=== PATIENT | male | born 1955 | race Caucasian/White ===

== ENCOUNTER 2024-10-22 15:08 | Outpatient (CLI) | payer MEDICARE, SELFPAY ==
--- NOTE | ~2024-10-22 | XR_ITS ---
EXAM: XR lumbar spine min 4V, XR sacroiliac joints min 3V DATE: 10/22/2024 16:18 HISTORY: Arthropathic psoriasis . COMPARISON: None available. FINDINGS: 5 nonrib-bearing lumbar-type vertebral bodies. Pedicles intact. 9 mm anterolisthesis at L5 -S1. 2 mm retrolistheses at L1-2 and L2-3. Vertebral body heights preserved. Disc space narrowing and marginal osteophytosis at all lumbar levels. Moderate facet hypertrophy and sclerosis in the lower l umbar spine. Bilateral pars defects at L5. No fracture or dislocation. Degenerative changes in the bi lateral hips. IMPRESSION: Grade 1 anterolisthesis at L5-S1 secondary to bilateral pars defects. Minimal grade 1 retrolistheses at L1-2 and L2-3. Multilevel moderate degenerative disc disease. Multilevel moderate facet arthropath y. Mild bilateral hip osteoarthritis. Radiographically normal bilateral SI joints Reviewed, dictated and finalized at location K. READER IMPRESSION: Grade 1 anterolisthesis at L5-S1 secondary to bilateral pars defects. Minimal g rade 1 retrolistheses at L1-2 and L2-3. Multilevel moderate degenerative disc d isease. Multilevel moderate facet arthropathy. Mild bilateral hip osteoarthritis. Radiographically normal bilateral SI joints
--- NOTE | ~2024-10-22 | XR_ITS ---
EXAM: XR foot LT 2V, XR foot RT 2V DATE: 10/22/2024 16:18 HISTORY: Arthropathic psoriasis . COMPARISON: None available. FINDINGS: Normal mineralization. No fracture or dislocation. No lytic or blastic lesion. Severe left and mild right first MTP joint and sesamoid arthritic changes. Moderate left hallux valgus. Mild sca ttered degenerative changes in the midfoot joints bilaterally. Mild bilateral Achilles and moderate p lantar enthesopathy. No erosion or periosteal change. Soft tissues within normal limits. 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 Reviewed, dictated and finalized at location K. DEVULCANIZER HELPER IMPRESSION: Bilateral first MTP joint and sesamoid osteoarthritis, severe on th e left.
--- NOTE | ~2024-10-22 | XR_ITS ---
EXAM: XR hand LT 2V, XR hand RT 2V DATE: 10/22/2024 16:18 HISTORY: Arthropathic psoriasis . COMPARISON: None available. FINDINGS: Normal mineralization. No fracture or dislocation. No lytic or blastic lesion. Scattered a rthritic changes, typical of osteoarthritis, severe at the bilateral first CMC joints and right first MCP joint, moderate at the left first MCP joint and bilateral second and third MCP joints. No erosio n or periosteal change. Soft tissues within normal limits. IMPRESSION: Moderate-severe polyarticular osteoarthritis of the hands. Reviewed, dictated and finalized at location K. ENWARE ASSEMBLER IMPRESSION: Moderate-severe polyarticular osteoarthritis of the hands.
--- OUTSIDE RECORDS SUMMARY | 2024-10-22 16:01 | XMS_ITS | Data Portability ---
Author Organization [facility], Main Office Address [address] [place] [address] Assessment Encounter Date Assessment Date Assessment LastModified by Organization Details LastModified Time 01/23/2023 01/23/2023 Osteoarthritis stable Low back pain seems to be doing fine Dyslipidemia atorvastatin Blood work ordered Colonoscopy High-fiber low-fat diet Follow-up 4-6 Not available 03/04/2023 10:14:04 07/09/2023 07/09/2023 High-fiber diet blood work reviewed continue current therapy follow-up 6 months [email or web address] Not available 07/09/2023 17:54:58 Plan of Treatment Reminders Order Date Submit Date Provider Last Modified By Organization Details Last Modified Time Details Appointments None recorded. Lab PSA, serum or plasma 2022 023 [facility] (Lab), [address] [place], [address], 3 11:40:18 CMP, serum or plasma 2022 023 [facility] (Lab), [address] [place], [address], 3 17:34:58 lipid panel, serum 2022 023 [facility] (Lab), [address] [place], [address], 3 17:35:03 Referral None recorded. Procedures colonoscopy screening (PROC) 2022 023 TY Sutton MD, [address] [facility], [facility] [address], [address], 3 15:22:50 Surgeries None recorded. Imaging None recorded. Medication Orders None recorded. Patient TargetsNo targets recorded. Patient InstructionsNo instructions recorded. Reason for Referral None Reported. Results Created Date Observation Date Name Description Value Unit Range Abnormal Flag Note LastModifiedBy Organization Detail LastModifiedTime 06/20/20 22 06/28/2022 HLA B 27 DISEA SE ASSOC IATIO N hla-B27 negati ve HLA-B *27 Negat jean pierre B27 allel e inter preta tion for all loci based on IMGT/ HLA datab ase versi on This test was devel oped and its perfo rmanc e isabel cteri stics deter mined by [facility]. It has not been clear ed or appro aly by the Food and Drug Admin istra tion. [facility] Lab CLIA ID Renetta kahn [id number] . This test was perfo rmed using PCR (Poly meras e Chain React ion)/ SSOP (Sequ ence Speci fic Oligo nucle otide Probe s) techn ique. SBT (Sequ ence Based Typin g) and/o r SSP (Sequ ence Speci fic Prime rs) may be used as suppl ement al aleshiao ds when neces siva. Pleas e conta ct HLA [facility] ce at [phone] if you have any quest ions. . Direc tor of HLA Labor atory Dr Shaheed Allison, PhD Perfo rmed at: 2Q - [facility] [address] [facility] [place] [address] Lab Direc tor: Shaheed Allison PhD, Phone : [phone] [facility] (Lab) [address] [place], [address], 06/28/2022 18:09:02 06/20/20 22 06/20/2022 SEDIM ENTAT ION RATE erythrocyte sedimentatio n rate 10 mm/HR 0-20 Not Available [facility] (Lab) [address] [place], [address], 06/20/2022 18:43:27 06/20/20 22 06/20/2022 C REACT JEAN PIERRE PROTE IN,UL TRA SENS C-reactive protein 0.24 mg/dL 0.0-0. [address] [facility] (Lab) [address] [place], [address], 06/20/2022 17:52:05 06/20/20 22 06/20/2022 COMPR EHENS JEAN PIERRE METAB OLIC PANEL sodium 140 mmol/ L 137-[address] [facility] (Lab) [address] [place], [address], 06/20/2022 17:51:56 06/20/20 22 06/20/2022 COMPR EHENS JEAN PIERRE METAB OLIC PANEL potassium 4.6 mmol/ L 3.5-5. [address] [facility] (Lab) [address] [place], [address], 06/20/2022 17:51:56 06/20/20 22 06/20/2022 COMPR EHENS JEAN PIERRE METAB OLIC PANEL chloride 106 mmol/ L 98-[address] [facility] (Lab) [address] [place], [address], 06/20/2022 17:51:56 06/20/20 22 06/20/2022 COMPR EHENS JEAN PIERRE METAB OLIC PANEL carbon dioxide 26 mmol/ L 22-[address] [facility] (Lab) [address] [place], [address], 06/20/2022 17:51:56 06/20/20 22 06/20/2022 COMPR EHENS JEAN PIERRE METAB OLIC PANEL anion gap 12.6 mmol/ L 14-[address] [facility] (Lab) [address] [place], [address], 06/20/2022 17:51:56 06/20/20 22 06/20/2022 COMPR EHENS JEAN PIERRE METAB OLIC PANEL glucose 88 mg/dL 70-[address] [facility] (Lab) [address] [place], [address], 06/20/2022 17:51:56 06/20/20 22 06/20/2022 COMPR EHENS JEAN PIERRE METAB OLIC PANEL BUN 21 mg/dL 8-[address] [facility] (Lab) [address] [place], [address], 06/20/2022 17:51:56 06/20/20 22 06/20/2022 COMPR EHENS JEAN PIERRE METAB OLIC PANEL creatinine 0.84 mg/dL 0.66-[address] [facility] (Lab) [address] [place], [address], 06/20/2022 17:51:56 06/20/20 22 06/20/2022 COMPR EHENS JEAN PIERRE METAB OLIC PANEL bilirubin, total 0.70 mg/dL 0.20-[address] [facility] (Lab) [address] [place], [address], 06/20/2022 17:51:56 06/20/20 22 06/20/2022 COMPR EHENS JEAN PIERRE METAB OLIC PANEL GFR >60 Refer ence Range : [facility] GFR Healt hy Adult : >60 mL/mi n/1.7 3 m2 Chron ic Kidne y Disea se: 15-60 mL/mi n/1.7 3 m2 Kidne y Failu re: <15/m L/min /1.73 m2 www.n iddk. nih.g ov The MDRD study equat ion has not been valid ated in child curtis <18 years of age; pregn ant women ; the elder ly >85 years of age; or in some racia l or ethni c subgr oups, such as Hispa nics. Outsi de the valid ated sarah eters , estim ated GFR is less accur ate, requi ring clini ysabel judgm ent on a case- by-ca se basis . Clini ysabel inter preta tion for other races and ages must be made by the clini jerry. The MDRD study equat ion has not been valid ated for the evalu ation of serum creat inine relat ed to nutri lucinda l statu s or medic ation usage . For perso ns <18 years of age, a pedia tric GFR calcu lator is avail able on the [facility] websi te: https ://ww w.kid taylor.o rg/pr ofess ional s/kdo qi/gf r_cal culat or Not Available [facility] (Lab) [address] [place], [address], 06/20/2022 17:51:56 06/20/20 22 06/20/2022 COMPR EHENS JEAN PIERRE METAB OLIC PANEL alkaline phosphatase 64 U/L 38-126 Not Available [facility] (Lab) [address] [place], [address], 06/20/2022 17:51:56 06/20/20 22 06/20/2022 COMPR EHENS JEAN PIERRE METAB OLIC PANEL alanine aminotransfe rase 28 U/L 0-50 Not Available [facility] (Lab) [address] [place], [address], 06/20/2022 17:51:56 06/20/20 22 06/20/2022 COMPR EHENS JEAN PIERRE METAB OLIC PANEL aspartate aminotransfe rase 28 U/L 15-46 Not Available [facility] (Lab) [address] [place], [address], 06/20/2022 17:51:56 06/20/20 22 06/20/2022 COMPR EHENS JEAN PIERRE METAB OLIC PANEL calcium 10.0 mg/dL 8.4-[address] [facility] (Lab) [address] [place], [address], 06/20/2022 17:51:56 06/20/20 22 06/20/2022 COMPR EHENS JEAN PIERRE METAB OLIC PANEL total protein 7.3 g/dL 6.3-8. [address] [facility] (Lab) [address] [place], [address], 06/20/2022 17:51:56 06/20/20 22 06/20/2022 COMPR EHENS JEAN PIERRE METAB OLIC PANEL albumin 4.6 g/dL 3.0-4. [address] [facility] (Lab) [address] [place], [address], 06/20/2022 17:51:56 06/20/20 22 06/20/2022 COMPR EHENS JEAN PIERRE METAB OLIC PANEL globulin 2.7 g/dL 2.6-4. [address] [facility] (Lab) [address] [place], [address], 06/20/2022 17:51:56 06/20/20 22 06/20/2022 COMPR EHENS JEAN PIERRE METAB OLIC PANEL A/G ratio 1.7 ratio 1.0-2. [address] [facility] (Lab) [address] [place], [address], 06/20/2022 17:51:56 06/20/20 22 06/20/2022 URINE MICRO SCOPI C EXAM/ IRIS white blood cells 0-8 /i??h pfi?? 0-[address] [facility] (Lab) [address] [place], [address], 06/20/2022 17:43:09 06/20/20 22 06/20/2022 URINE MICRO SCOPI C EXAM/ IRIS red blood cells 0-4 /i??h pfi?? 0-[address] [facility] (Lab) [address] [place], [address], 06/20/2022 17:43:09 06/20/20 22 06/20/2022 URINE MICRO SCOPI C EXAM/ IRIS bacteria none Not Available [facility] (Lab) [address] [place], [address], 06/20/2022 17:43:09 06/20/20 22 06/20/2022 URINE MICRO SCOPI C EXAM/ IRIS mucous occasi onal /i??l pfi?? abnormal Not Available [facility] (Lab) [address] [place], [address], 06/20/2022 17:43:09 06/20/20 22 06/20/2022 URINE MICRO SCOPI C EXAM/ IRIS squamous epithelial occasi onal /i??l pfi?? abnormal Not Available [facility] (Lab) [address] [place], [address], 06/20/2022 17:43:09 06/20/20 22 06/20/2022 CBC/C OMPLE TE BLD COUNT W/DIF F white blood cells 6.9 x10'3 /uL 4.2-[address] [facility] (Lab) [address] [place], [address], 06/20/2022 17:41:40 06/20/20 22 06/20/2022 CBC/C OMPLE TE BLD COUNT W/DIF F red blood cells 4.22 x10'6 /uL 4.10-[address] [facility] (Lab) [address] [place], [address], 06/20/2022 17:41:40 06/20/20 22 06/20/2022 CBC/C OMPLE TE BLD COUNT W/DIF F hemoglobin 13.1 g/dL 13.2-1 7[address] [facility] (Lab) [address] [place], [address], 06/20/2022 17:41:40 06/20/20 22 06/20/2022 CBC/C OMPLE TE BLD COUNT W/DIF F hematocrit 40.0 % 39.3-[address] [facility] (Lab) [address] [place], [address], 06/20/2022 17:41:40 06/20/20 22 06/20/2022 CBC/C OMPLE TE BLD COUNT W/DIF F mean red cell volume 94.8 fL 80.0-[address] [facility] (Lab) [address] [place], [address], 06/20/2022 17:41:40 06/20/20 22 06/20/2022 CBC/C OMPLE TE BLD COUNT W/DIF F mean red cell hemoglobin 31.0 pg 27.0-[address] [facility] (Lab) [address] [place], [address], 06/20/2022 17:41:40 06/20/20 22 06/20/2022 CBC/C OMPLE TE BLD COUNT W/DIF F mean RBC HGB concentratio n 32.8 g/dL 31.0-[address] [facility] (Lab) [address] [place], [address], 06/20/2022 17:41:40 06/20/20 22 06/20/2022 CBC/C OMPLE TE BLD COUNT W/DIF F red cell distribution width 13.5 % 11.8-[address] [facility] (Lab) [address] [place], [address], 06/20/2022 17:41:40 06/20/20 22 06/20/2022 CBC/C OMPLE TE BLD COUNT W/DIF F platelets 237 x10'3 /uL 150-[address] [facility] (Lab) [address] [place], [address], 06/20/2022 17:41:40 06/20/20 22 06/20/2022 CBC/C OMPLE TE BLD COUNT W/DIF F mean platelet volume 9.1 fL 9.0-[address] [facility] (Lab) [address] [place], [address], 06/20/2022 17:41:40 06/20/20 22 06/20/2022 CBC/C OMPLE TE BLD COUNT W/DIF F neutrophils 62.8 % 39.0-[address] [facility] (Lab) [address] [place], [address], 06/20/2022 17:41:40 06/20/20 22 06/20/2022 CBC/C OMPLE TE BLD COUNT W/DIF F lymphocytes 23.0 % 16.0-[address] [facility] (Lab) [address] [place], [address], 06/20/2022 17:41:40 06/20/20 22 06/20/2022 CBC/C OMPLE TE BLD COUNT W/DIF F monocytes 9.2 % 5.0-[address] [facility] (Lab) [address] [place], [address], 06/20/2022 17:41:40 06/20/20 22 06/20/2022 CBC/C OMPLE TE BLD COUNT W/DIF F eosinophils 3.5 % 1.0-7. [address] [facility] (Lab) [address] [place], [address], 06/20/2022 17:41:40 06/20/20 22 06/20/2022 CBC/C OMPLE TE BLD COUNT W/DIF F basophils 1.2 % 0.0-2. [address] [facility] (Lab) [address] [place], [address], 06/20/2022 17:41:40 06/20/20 22 06/20/2022 CBC/C OMPLE TE BLD COUNT W/DIF F immature granulocytes 0.3 % 0.00-[address] [facility] (Lab) [address] [place], [address], 06/20/2022 17:41:40 06/20/20 22 06/20/2022 CBC/C OMPLE TE BLD COUNT W/DIF F neutrophils, absolute count 4.33 x10'3 /uL 1.5-8. [address] [facility] (Lab) [address] [place], [address], 06/20/2022 17:41:40 06/20/20 22 06/20/2022 CBC/C OMPLE TE BLD COUNT W/DIF F lymphocytes, absolute count 1.58 x10'3 /uL 1.07-[address] [facility] (Lab) [address] [place], [address], 06/20/2022 17:41:40 06/20/20 22 06/20/2022 CBC/C OMPLE TE BLD COUNT W/DIF F monocytes, absolute count 0.63 x10'3 /uL 0.29-0 .99 Not Available [facility] (Lab) [address] [place], [address], 06/20/2022 17:41:40 06/20/20 22 06/20/2022 CBC/C OMPLE TE BLD COUNT W/DIF F eosinophils, absolute count 0.24 x10'3 /uL 0.02-[address] [facility] (Lab) [address] [place], [address], 06/20/2022 17:41:40 06/20/20 22 06/20/2022 CBC/C OMPLE TE BLD COUNT W/DIF F basophils, absolute count 0.08 x10'3 /uL 0.01-[address] [facility] (Lab) [address] [place], [address], 06/20/2022 17:41:40 06/20/20 22 06/20/2022 CBC/C OMPLE TE BLD COUNT W/DIF F immature granulocytes ,absolute 0.02 x10'3 /uL 0.00-[address] [facility] (Lab) [address] [place], [address], 06/20/2022 17:41:40 06/20/20 22 06/20/2022 CBC/C OMPLE TE BLD COUNT W/DIF F nucleated red blood cells 0.0 % -0 Not Available [facility] (Lab) [address] [place], [address], 06/20/2022 17:41:40 06/20/20 22 06/20/2022 CBC/C OMPLE TE BLD COUNT W/DIF F NRBC# 0.00 x10'3 /uL Not Available [facility] (Lab) [address] [place], [address], 06/20/2022 17:41:40 07/04/20 23 07/04/2023 COMPR EHENS JEAN PIERRE METAB OLIC PANEL sodium 141 mmol/ L 137-[address] [facility] (Lab) [address] [place], [address], 07/04/2023 17:34:58 07/04/20 23 07/04/2023 COMPR EHENS JEAN PIERRE METAB OLIC PANEL potassium 4.7 mmol/ L 3.5-5. [address] [facility] (Lab) [address] [place], [address], 07/04/2023 17:34:58 07/04/2007/04/2023 COMPR EHENS JEAN PIERRE METAB OLIC PANEL chloride 104 mmol/ L 98-[address] [facility] (Lab) [address] [place], [address], 07/04/2023 17:34:58 07/04/20 23 07/04/2023 COMPR EHENS JEAN PIERRE METAB OLIC PANEL carbon dioxide 28 mmol/ L 22-[address] [facility] (Lab) [address] [place], [address], 07/04/2023 17:34:58 07/04/2007/04/2023 COMPR EHENS JEAN PIERRE METAB OLIC PANEL anion gap 13.7 mmol/ L 14-[address] [facility] (Lab) [address] [place], [address], 07/04/2023 17:34:58 07/04/2007/04/2023 COMPR EHENS JEAN PIERRE METAB OLIC PANEL glucose 86 mg/dL 70-[address] [facility] (Lab) [address] [place], [address], 07/04/2023 17:34:58 07/04/2007/04/2023 COMPR EHENS JEAN PIERRE METAB OLIC PANEL BUN 19 mg/dL 8-[address] [facility] (Lab) [address] [place], [address], 07/04/2023 17:34:58 07/04/2007/04/2023 COMPR EHENS JEAN PIERRE METAB OLIC PANEL creatinine 0.72 mg/dL 0.66-[address] [facility] (Lab) [address] [place], [address], 07/04/2023 17:34:58 07/04/2007/04/2023 COMPR EHENS JEAN PIERRE METAB OLIC PANEL GFR >60 Refer ence Range : [facility] GFR Healt hy Adult : >60 mL/mi n/1.7 3 m2 Chron ic Kidne y Disea se: 15-60 mL/mi n/1.7 3 m2 Kidne y Failu re: <15/m L/min /1.73 m2 www.n iddk. nih.g ov The MDRD study equat ion has not been valid ated in child curtis <18 years of age; pregn ant women ; the elder ly >85 years of age; or in some racia l or ethni c subgr oups, such as Hispa nics. Outsi de the valid ated sarah eters , estim ated GFR is less accur ate, requi ring clini ysabel judgm ent on a case- by-ca se basis . Clini ysabel inter preta tion for other races and ages must be made by the clini jerry. The MDRD study equat ion has not been valid ated for the evalu ation of serum creat inine relat ed to nutri lucinda l statu s or medic ation usage . For perso ns <18 years of age, a pedia tric GFR calcu lator is avail able on the [facility] websi te: https ://franny yeung.ke vazquez.o artem/pr ofess ional s/kdo qi/gf r_cal culat or Not Available [facility] (Lab) [address] [place], [address], 07/04/2023 17:34:58 07/04/2007/04/2023 COMPR EHENS JEAN PIERRE METAB OLIC PANEL alkaline phosphatase 73 U/L 38-126 Not Available [facility] (Lab) [address] [place], [address], 07/04/2023 17:34:58 07/04/2007/04/2023 COMPR EHENS JEAN PIERRE METAB OLIC PANEL alanine aminotransfe rase 30 U/L 0-50 Not Available [facility] (Lab) [address] [place], [address], 07/04/2023 17:34:58 07/04/20 23 07/04/2023 COMPR EHENS JEAN PIERRE METAB OLIC PANEL aspartate aminotransfe rase 30 U/L 15-46 Not Available [facility] (Lab) [address] [place], [address], 07/04/2023 17:34:58 07/04/20 23 07/04/2023 COMPR EHENS JEAN PIERRE METAB OLIC PANEL bilirubin, total 0.60 mg/dL 0.20-[address] [facility] (Lab) [address] [place], [address], 07/04/2023 17:34:58 07/04/2007/04/2023 COMPR EHENS JEAN PIERRE METAB OLIC PANEL calcium 10.1 mg/dL 8.4-[address] [facility] (Lab) [address] [place], [address], 07/04/2023 17:34:58 07/04/2007/04/2023 COMPR EHENS JEAN PIERRE METAB OLIC PANEL total protein 7.6 g/dL 6.3-8. [address] [facility] (Lab) [address] [place], [address], 07/04/2023 17:34:58 07/04/2007/04/2023 COMPR EHENS JEAN PIERRE METAB OLIC PANEL albumin 4.7 g/dL 3.0-4. [address] [facility] (Lab) [address] [place], [address], 07/04/2023 17:34:58 07/04/2007/04/2023 COMPR EHENS JEAN PIERRE METAB OLIC PANEL globulin 2.9 g/dL 2.6-4. [address] [facility] (Lab) [address] [place], [address], 07/04/2023 17:34:58 07/04/2007/04/2023 COMPR EHENS JEAN PIERRE METAB OLIC PANEL A/G ratio 1.6 ratio 1.0-2. [address] [facility] (Lab) [address] [place], [address], 07/04/2023 17:34:58 07/04/20 23 07/04/2023 LIPID PANEL cholesterol 203 mg/dL 140-19 9 high NIH PRASHANTH NSUS RECOM MENDA TION FOR RE STERO L: ADULT CHILD LOW RISK: <200 <170 BORDE RLINE : <200- 239 ----- HIGH RISK: >240 >200 Not Available [facility] (Lab) [address] [place], [address], 07/04/2023 17:35:03 07/04/2007/04/2023 LIPID PANEL triglyceride s 112 mg/dL 0-150 NIH PRASHANTH NSUS REPOR T RECOM MENDA TION FOR TRIGL YCERI RANDY: ADULT CHILD LOW RISK: <150 ----- BODER LINE: 150-1 99 ----- HIGH RISK: >200 ----- Not [address] [facility] (Lab) [address] [place], [address], 07/04/2023 17:35:03 07/04/2007/04/2023 LIPID PANEL HDL cholesterol 86 mg/dL 40- Not Available [facility] (Lab) [address] [place], [address], 07/04/2023 17:35:03 07/04/2007/04/2023 LIPID PANEL LDL cholesterol, calculated 95 mg/dL 0-130 [facility] PRASHANTH NSUS REPOR T RECOM MENDA TIONS FOR LDL: ADULT CHILD LOW RISK <130 <110 (OPTI MAL LDL) <100 ----- BORDE RLINE : 130-1 59 ----- HIGH RISK: >160 >130 A TRIGL YCERI DE RESUL T >400 INVAL IDATE S THE CALCU LATIO N FOR LDL FRACT IONAT ION - THE LDL RESUL T WILL NOT BE REPOR JOHN. Not Available [facility] (Lab) [address] [place], [address], 07/04/2023 17:35:03 07/04/2007/04/2023 PSA SCREE N PSA medicare screen 0.76 NG/mL 0.00-[address] [facility] (Lab) [address] [place], [address], 07/04/2023 18:14:08 06/30/20 22 06/30/2022 XR, hip, unila teral [facility] [address] [facility] [place] [address] Anil odonnell Name: RAJ PICHARDO Access ion #: [id number] Sex: M : 1955 7 Locati on: RAD Attend ing Physic gilbert: SANGITA STOCK Orderi ng Physic gilbert: SANGITA STOCK Exam Date: 2:45 PM Exam Name: XR HIP/PE LVIS LT 2-3V Admitt ing Diagno sis(es ): RADIOL OGY REPORT - FINAL EXAM: XR HIP/PE LVIS LT 2-3V HISTOR Y: LOW BACK PAIN COMPAR GIDEON: None. TECHNI QUE: AP and frog-l eg latera l views of the left hip were perfor med. FINDIN GS: No acute fractu re is identi fied about the left hip. Mild femoro acetab ular joint osteoa rthrit ic residu als noted. IMPRES RICHARD: No acute proces s. Page 1 of 2 [facility] Anil odonnell Name: RAJ PICHARDO Access ion #: [id number] Sex: M : 1955 7 Exam Date: 2:45 PM Exam Name: XR HIP/PE LVIS LT 2-3V Admitt ing Diagno sis(es ): Create d and electr onical ly signed by: Raj dale MD Signed Date: 4:48 PM (CT) Dictat ed by: Raj dale MD DD: 4:48 PM (CT) DT: 4:48 PM (CT) Page 2 of [id number] [facility] (Imaging) [address] [facility] [place], [address], 11/22/2022 06:19:49 06/30/2006/30/2022 MRI, lumba r spine , w/o contr ast [facility] [address] [facility] [place] [address] Anil odonnell Name: RAJ PICHARDO Access ion #: [id number] Sex: M : 1955 7 Locati on: RAD Attend ing Physic gilbert: SANGITA STOCK Orderi ng Physic gilbert: SANGITA STOCK Exam Date: 2:54 PM Exam Name: MRI L SPINE WO Admitt ing Diagno sis(es ): RADIOL OGY REPORT - FINAL EXAM: MRI L SPINE WO HISTOR Y: low back pain left leg-le ft knee pain COMPAR GIDEON: None. TECHNI QUE: Multip lanar multis equenc e noncon trast MR images of the lumbar spine were perfor med. Sagita l: T1, T2, Axial: T1, T2, T2 multia ngle. FINDIN GS: Verteb ral bodies : No acute proces s. Conus medull sherine: T12 Disc spaces : All levels demons trate degene rative desicc ation signal intens ity Page 1 of 3 [facility] Anil odonnell Name: RAJ PICHARDO Access ion #: [id number] Sex: M : 1955 7 Exam Date: 2:54 PM Exam Name: MRI L SPINE WO Admitt ing Diagno sis(es ): Parave rtebra l soft tissue s: Unrema rkable Vascul ature: No aneury sm T12-L1 : Unrema rkable L1-2: Mild bulgin g of the degene rate annulu s which result s in mild centra l spinal stenos is. L2-3: Mild bulgin g of a degene rate annulu s result s in modera te centra l spinal stenos is, severe right and modera te left prefor aminal stenos is and with facet hypert rophy, mild bilate ral neural forami nal stenos is. L3-4: A diffus patricia bulgin g degene rate annulu s is presen t result ing in modera te centra l spinal stenos is, severe right and modera te left prefor aminal stenos is and with facet hypert rophic change s, modera te right neural forami nal stenos is, a tiny right forami nal disc protru richard cannot be exclud ed. L4-5: Unrema rkable L5-S1: Grade 1 spondy lolist hesis noted at L5-S1. A bulgin g degene rate annulu s presen t, the net result is border line centra l spinal stenos is and mild left neural forami nal stenos is. IMPRES RICHARD: See above. Create d and electr onical ly signed by: Page 2 of 3 [facility] Patireza t Name: RAJ PICHARDO Access ion #: [id number] Sex: M : 1955 7 Exam Date: 2:54 PM Exam Name: MRI L SPINE WO Admitt ing Diagno sis(es ): Raj dale MD Signed Date: 3:53 PM (CT) Dictat ed by: Raj dale MD DD: 3:53 PM (CT) DT: 3:53 PM (CT) Page 3 of [id number] [facility] (Imaging) [address] [place], [address], 11/22/2022 06:19:49 08/08/20 24 08/08/2024 LDCT, chest , for lung cance r cali [facility] [address] [place] [address] Patireza t Name: RAJ PICHARDO Access ion #: [id number] Sex: M : 1955 10 Dictat ed By: Michelle Arroyo ing Physic gilbert: SANGITA STOCKi ng Physic gilbert: SANGITA STOCK Exam Date: 2023 09:58 AM Exam Name: CT LOW DOSE CNCR SCREEN ING Admitt ing Diagno sis(es ): CT Chest withou t intrav enous contra st INDICA TION: nicoti ne depend ence TECHNI QUE: Multid etecto r spiral CT of the chest was perfor med from the lung apices to the upper abdome n. Axial, luo l and sagitt al multip lanar reform ats were perfor med. Radiat ion Dose : 1. Chest: CTDI volume is 1.5 mGy. Dose-l ength produc t is T6 0.3 mGy*cm The dose indica tors for CT are the volume Comput ed Tomogr aphy (CT) Dose Index (CTDIv ol) and the Dose Length Produc t (DLP), and are measur ed in units of mGy and mGy-cm , respec tively . These indica tors are not patien t dose, but values genera john from the CT scanne r acquis ition factor s. The report includ es radiat ion exposu re data for exposu res receiv ed during this examin ation. Compar gideon: None Findin gs: Lower neck: Normal thyroi d. Lungs: No focal consol idatio n. Mild diffus e periph eral increa sed attenu ation in the periph denver of the right lung may repres ent mild fibrot ic change s. Heart/ Vascul ar Struct ures: Normal heart size. No perica rdial effusi on. Lymph Nodes: No adenop athy. Calcif ied medias tinal lymph nodes likely relate d to prior granul omatou s infect ion. Page 1 [facility] [address] [place], [place] [id number] Patien t Name: FRANCIS GUZMÁNTONYRAJ Mccoy Access ion #: [id number] Sex: M : 1955 9 Dictat ed By: Michelle Simpson Attend ing Physic gilbert: HOLLAND MAYNARD ng Physic gilbert: SANGITA STOCK Exam Date: 2023 09:58 AM Exam Name: CT LOW DOSE CNCR SCREEN ING Admitt ing Diagno sis(es ): Pleura : No pleura l effusi on or signif icant pneumo thorax . Muscul oskele ena: No acute osseou s abnorm ality. Soft tissue s: Normal . Upper abdome n: Limite d portio ns of the upper abdome n are unrema rkable . IMPRES RICHARD: Indete rminat e 0.3 cm nodule in the periph den[place] of the right upper lobe. Possib le mild / early fibrot ic change s in the right lung. LUNG RADS Catego ry 2: Contin ue annual screen ing with LDCT Radiat ion optimi zation : All CT scans at this facili ty use at least one of these dose optimi zation techni ques: automa john exposu re contro l mA and/or kV adjust ment per patien t size (inclu randy target ed exams where dose is matche d to clinic al indica tion) or iterat jean pierre recons tructi on. Electr onical ly Signed by: Michelle Simpson at 2023 10:35: 37 AM Page [email or web address] [facility] ([facility]) [address] [place], [address], 08/09/2024 13:59:20 Result Notes None recorded. Problems Name Problem SNOMED Code Status Onset Date Resolution Date Notes Provider Name and Address Organization Details Recorded Time Chronic low back pain 052540404 Active 2021 Not Available [facility] 3 07:02:20 Low back pain 373275483 Active 2021 Not Available [facility] 3 07:02:20 Cyst of tonsil 627248189 Active 2016 Not Available [facility] 3 07:02:21 Osteoarthr itis 394923900 Active 2020 Not Available [facility] 3 07:02:21 Pain of left knee joint 7651724435781 07 Active 2022 Not Available [facility] 3 07:02:21 Pain of bilateral knee joints 0456108883023 04 Active 2022 Not Available [facility] 3 07:02:21 Hyperlipid emia 86380957 Active 2018 Not Available Count includes the [facility] 3 07:02:21 Diverticul ar disease 280704425 Active 2022 Alejandro Stock MD [address] [facility], [facility] [address], [place], [address] , [place] [facility] [employer] 3 17:54:43 Problem Notes None recorded. Procedures Surgical History Date Name Laterality Status Provider Name and Address Organization Details Recorded Time Hand completed Not Available [facility] 09/2022 05:58:49 Imaging Results Imaging Date Name Status LastModified by Organiz ation Details LastModified Time 06/30/2022 XR, hip, unilateral completed [id number] [facility] [address] [place], [address], 11/22/2022 06:19:49 06/30/2022 MRI, lumbar spine, w/o contrast completed [id number] [facility] ([facility]) [address] [place], [address], 11/22/2022 06:19:49 08/08/2024 LDCT, chest, for lung cancer screening completed [email or web address] [facility] [address] [place], [address], 08/09/2024 13:59:20 Procedure Notes None recorded. Medical Equipment None Reported. Allergies Allergen ID Allergen Name Allergen Category Reaction Reaction Severity Criticality Documentation Date Start Date Code Code System Note Provider Name and Address Organization Details Recorded Time 87268 phenobarb ital medicatio n edema Not available Not available 11/22/2022 8134 RxNorm Not Available Count includes the [facility] 06:19:14 Medications Name Sig Start Date Stop Date Status Note LastModified by Organization Details LastModified Time tizanidine 2 mg tablet TAKE 1 TABLET BY MOUTH THREE TIMES DAILY NEEDED FOR MUSCLE SPASM active Not Available Not Available No t Available atorvastati n 10 mg tablet TAKE 1 TABLET BY MOUTH ONCE DAILY active Not Available Not Available No t Available aspirin 325 mg tablet Take 1 tablet every day by oral route as needed. 2020 active Not Available Not Available Not Avai lable tizanidine 4 mg tablet Take 1 tablet every day by oral route at bedtime. 08/22 completed Not Available Not Available Not Available benzonatate 200 mg capsule Take 1 capsule 3 times a day by oral route. 04/03 completed Not Available Not Available Not Available hydrocodone 5 mg-acetamin ophen 325 mg tablet TAKE 1 TO 2 TABLETS BY MOUTH EVERY 6 HOURS NEEDED FOR PAIN 08/14 completed Not Available Not Available Not Available prednisone 20 mg tablet active Not Available Not Available Not Available Zithromax Z-Jorge 250 mg tablet Take as directed 04/03 completed Not Available Not Available Not Available promethazin e 6.25 mg-codeine 10 mg/5 mL syrup Take 5 mL every day by oral route at bedtime. 04/03 completed Not Available Not Available Not Available peg-electro lyte solution 420 gram oral solution TAKE 1/2 BY MOUTH AT 5 PM ON 03/04/23 THEN TAKE 1/2 AT 5 AM ON 03/05/23. 07/09 completed Not Available Not Available Not Available oseltamivir 75 mg capsule Take 1 capsule twice a day by oral route for 5 days. 04/03 completed Not Available Not Available Not Available duloxetine 30 mg capsule,del ayed release TAKE 1 CAPSULE BY MOUTH TWICE DAILY 07/09 completed Not Available Not Available Not Available duloxetine 60 mg capsule,del ayed release TAKE 1 CAPSULE BY MOUTH TWICE DAILY active Not Available Not Available No t Available Vitals Date Recorded Body mass index (BMI) Body height Heart rate Body temperature Body weight Systolic blood pressure Diastolic blood pressure Provider Name and Address Organization Details Last Updated DateTime 2 27.8 kg/m2 168.91 cm 86 /min 98.3 [degF] 32065.6 6 g 118 mm[Hg] 70 mm[Hg] Not Available [facility] 3 06:02:16 Date Recorded Body mass index (BMI) Body height Heart rate Body temperature Body weight Systolic blood pressure Diastolic blood pressure Provider Name and Address Organization Details Last Updated DateTime 2 28 kg/m2 168.91 cm 79 /min 98.4 [degF] 48245.2 6 g 136 mm[Hg] 80 mm[Hg] Not Available [facility] 3 06:02:16 Date Recorded Body mass index (BMI) Body height Heart rate Body temperature Body weight Systolic blood pressure Diastolic blood pressure Provider Name and Address Organization Details Last Updated DateTime 3 28.1 kg/m2 168.91 cm 76 /min 97.7 [degF] 05235.1 3 g 124 mm[Hg] 72 mm[Hg] Not Available [facility] 3 06:02:16 Date Recorded Body height Body mass index (BMI) Body weight Body temperature Heart rate Systolic blood pressure Diastolic blood pressure Provider Name and Address Organization Details Last Updated DateTime 3 168.91 cm 27.2 kg/m2 18736.3 g 98.2 [degF] 96 /min 142 mm[Hg] 84 mm[Hg] ANDIE Pink PA [employer] 3 16:51:29 Date Recorded Body height Body weight Body temperature Heart rate Oxygen saturation Oxygen saturation in Arterial blood by Pulse oximetry Systolic blood pressure Diastolic blood pressure Provider Name and Address Organization Details Last Updated DateTime 3 168.91 cm 40944.7 g 97.5 [degF] 82 /min 98 % 98 % 126 mm[Hg] 86 mm[Hg] Katia Dwyer RN [employer] 3 16:17:20 Social History Question Answer Notes LastModified by Organization Details LastModified Time Tobacco Smoking Status Former Smoker quit 2016 Not Available Count includes the [facility] 11/22/2022 05:56:24 Do You Have An Advance Directive? No MIGRATION.300026 Information not available 11/22/2022 What Is Your Level Of Alcohol Consumption? Moderate MIGRATION.300026 Information not available 11/22/2022 Are You Blind Or Do You Have Difficulty Seeing? Yes Glasses MIGRATION.300026 Information not available 11/22/2022 What Is Your Level Of Caffeine Consumption? Moderate MIGRATION.[id number] Information not available 11/22/2022 In The 14 Days Before Symptom Onset, Have You Had Close Contact With A Laboratory-confi rmed COVID-19 While That Case Was Ill? No MIGRATION.300026 Information not available 11/22/2022 In The 14 Days Before Symptom Onset, Have You Had Close Contact With A Person Who Is Under Investigation For COVID-19 While That Person Was Ill? No MIGRATION.0301 626408 Information not available 11/22/2022 Are You Deaf Or Do You Have Serious Difficulty Hearing? No MIGRATION.0301 531324 Information not available 11/22/2022 What Type Of Diet Are You Following? REGULAR MIGRATION.0301 139797 Information not available 11/22/2022 What Is The Highest Grade Or Level Of School You Have Completed Or The Highest Degree You Have Received? 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 No MIGRATION.0301 883287 Information not available 11/22/2022 What Is The Fluoride Status Of Your Home? Unknown MIGRATION.0301 237497 Information not available 11/22/2022 When Did You Quit Smoking? 1-5yearssincelastc igarette MIGRATION.0301 275012 Information not available 11/22/2022 Are There Any Guns Present In Your Home? No MIGRATION.0301 614136 Information not available 11/22/2022 Do You Use Insect Repellent Routinely? No MIGRATION.0301 781462 Information not available 11/22/2022 Where Do You Live? SingleLevelHouse MIGRATION.0301 561723 Information not available 11/22/2022 Do You Have A Medical Power Of University Librarian? No MIGRATION.0301 246229 Information not available 11/22/2022 What Was The Date Of Your Most Recent Tobacco Screening? 07/09/2023 [email or web address] Information not available 07/09/2023 Have You Ever Been Counseled For Unhealthy Alcohol Use? No MIGRATION.0301 388608 Information not available 11/22/2022 Do You Have Any Pets? No MIGRATION.0301 552482 Information not available 11/22/2022 What Is Your Relationship Status? MIGRATION.0301 920805 Information not available 11/22/2022 Do You Use Your Seat Belt Or Car Seat Routinely? Yes MIGRATION.0301 602527 Information not available 11/22/2022 Do You Have Smoke And Carbon Monoxide Detectors In Your Home? Yes MIGRATION.0301 018928 Information not available 11/22/2022 Are You Passively Exposed To Smoke? No MIGRATION.0301 846543 Information not available 11/22/2022 Are There Any Smokers In Your House? No MIGRATION.0301 390713 Information not available 11/22/2022 What Types Of Sporting Activities Do You Participate In? None MIGRATION.0301 779999 Information not available 11/22/2022 Do You Feel Stressed (tense, Restless, Nervous, Or Anxious, Or Unable To Sleep At Night)? [id number] MIGRATION.0301 608340 Information not available 11/22/2022 Do You Use Any Illicit Or Recreational Drugs? No MIGRATION.0301 777988 Information not available 11/22/2022 Do You Use Sunscreen Routinely? No MIGRATION.0301 306959 Information not available 11/22/2022 Have You Recently Traveled Abroad? No MIGRATION.0301 924287 Information not available 11/22/2022 Do You Have Any Dietary Restrictions? No MIGRATION.0301 408187 Information not available 11/22/2022 Do You Or Have You Ever Used Any Other Forms Of Tobacco Or Nicotine? No MIGRATION.0301 453819 Information not available 11/22/2022 Sex: Male Functional Status Question Answer Note LastModified by Organizat ion Details LastModified Time Do you have difficulty walking or climbing stairs? No MIGRATION.3032891 026 Information not available 11/22/2022 Do you have transportation difficulties? No MIGRATION.6244246 026 Information not available 11/22/2022 Are you able to walk? YESWOREST MIGRATION.0001422 026 Information not available 11/22/2022 Do you have difficulty doing errands alone? No MIGRATION.5835159 026 Information not available 11/22/2022 Are you able to care for yourself? No MIGRATION.8381856 026 Information not available 11/22/2022 What is your exercise level? Occasional MIGRATION.3328898 026 Information not available 11/22/2022 Mental Status Question Answer Note LastModified by Organizat ion Details LastModified Time Do you have difficulty concentrating, remembering or making decisions? No MIGRATION.[id number] 6 Information not available 11/22/2022 Family History Relationship Description Onset Age of this Age Resolved Age Notes LastModified by Organization Details LastModified Time Mother Arthritis MIGRATION.662 [id number] Not available 11/22/2022 05:58:53 Mother Asthma MIGRATION.804 [id number] Not available 11/22/2022 05:58:54 Father Arthritis MIGRATION.946 [id number] Not available 11/22/2022 05:58:54 Paternal Grandmother Arthritis MIGRATION.342 [id number] Not available 11/22/2022 05:58:54 Paternal Grandmother Gout MIGRATION.425 [id number] Not available 11/22/2022 05:58:54 Sister Asthma MIGRATION.122 [id number] Not available 11/22/2022 05:58:54 Sister Asthma MIGRATION.647 5716125 Not available 11/22/2022 05:58:54 Medical History Condition Response BLINDNESS N NERVE DISEASE N RHEUMATIC FEVER N BLADDER PROBLEMS N KIDNEY STONES N MRSA N OTHER # 1 N POLIO N LUNG DISEASE/DISORDER N HISTORY OF DRUG ABUSE N RADIATION / CHEMOTHERAPY N COPD N Other # 2 N BLOOD DISEASES N EAR OR HEARING PROBLEMS N MUMPS N SHINGLES N DEPRESSION (INCLUDING POST ) N BOWEL PROBLEMS N STROKE/TIA N ULCERS N BENIGN PROSTATIC HYPERPLASIA N MEASLES N HYPOTENSION N MYOCARDIAL INFARCTION N OBESITY N GERD/NAUSEA N ANEURYSM N URINARY/BLADDER/KIDNEY PROBLEMS N CORONARY ARTERY DISEASE (CAD) N ADDICTION CONCERNS N Impotence N ENDOMETRIOSIS N USE OF BLOOD THINNERS N SKIN PROBLEMS Y GASTROINTESTINAL DISORDER N PERIPHERAL VASCULAR DISEASE N MUSCLE,JOINT OR BONE PROBLEMS N GASTROINTESTINAL BLEEDING N BLOOD CLOTS N ASTHMA N CATARACTS N ERECTILE DYSFUNCTION N VARICOSITIES N GI PROBLEMS N Low Testosterone N INFERTILITY N AIDS/HIV N CHEMOTHERAPY / RADIATION N LIVER DISEASE N MALE HYPOGONADISM N HYPERTENSION N Deficiency N TOURETTE'S N ANXIETY DISORDER N BLOOD TRANSFUSION N ANEMIA/BLOOD DISORDER N CHRONIC EAR INFECTIONS N BRONCHITIS N TUBERCULOSIS N GLAUCOMA N FOOT PROBLEM N DIVERTICULITIS N SLEEP APNEA N CHICKENPOX N INFECTIOUS DISEASE N PROSTATE N HEART ARRHYTHMIA N INSOMNIA N HIGH CHOLESTEROL / HYPERLIPIDEMIA Y EYE PROBLEMS N HYPERTHYROIDISM N EDEMA N CHRONIC PAIN SYNDROME N HYPOTHYROIDISM N CAROTID BLOCKAGE N CONSTIPATION N BACK / NECK PROBLEMS N ATHEROSCLEROSIS N BREAST PROBLEMS N DIALYSIS N ECZEMA N OSTEOPOROSIS N ARTHRITIS Y APPENDICITIS N DIABETES, TYPE N BAD TEETH N ENT N HEARTBURN / REFLUX N AUTISM SPECTRUM DISORDER (ASD) N HEPATITIS / LIVER DISEASE N GOUT N SLEEP DISORDER N ALZHEIMER'S DISEASE N Brain Problems N DEMENTIA N HERPES N SEIZURES/EPILEPSY N HEADACHES/MIGRAINES N VASCULAR DISEASE N PACEMAKER N Blood Disorder N DIZZINESS N HEART DISEASE/HEART PROBLEMS N KIDNEY DISEASE N MULTIPLE SCLEROSIS N CANCER: SPECIFY N CARDIAC ARRHYTHMIA N ATRIAL FIBRILLATION N Gall Stones N PULMONARY EMBOLISM N AUTOIMMUNE DISEASE N Immunizations Vaccine Type Date Status Note Provider Nam e and Address Organization Details Recorded Time COVID-19, mRNA, LNP-S, PF, 30 mcg/0.3 mL dose 1 completed Not Available Count includes the [facility] 07/05/2023 07:02:21 COVID-19, mRNA, LNP-S, PF, 30 mcg/0.3 mL dose 1 completed Not Available Count includes the [facility] 07/05/2023 07:02:21 Tdap 7 completed Not Available Count includes the [facility] 07/05/2023 07:02:21 Influenza, split virus, quadrivalent, PF 1 completed Not Available Count includes the [facility] 07/05/2023 07:02:21 Influenza, split virus, quadrivalent, PF 1 completed Not Available Count includes the [facility] 07/05/2023 07:02:21 Influenza, split virus, quadrivalent, PF 9 completed Not Available Count includes the [facility] 07/05/2023 07:02:21 Td (adult), 2 Lf tetanus toxoid, preservative free, adsorbed 7 completed Not Available Count includes the [facility] 07/05/2023 07:02:21 Past Encounters Encounter ID Performer Location Encounter Start Date Encounter Closed Date Diagnosis/Indication Diagnosis SNOMED-CT Code Diagnosis ICD10 Code Diagnosis Note [id number] [facility] 15 2043 Karina , [address] [address] 04/14/2021 00:00:00 04/16/2021 21:46:33 [id number] [facility] Chet plummer [address] [facility] [place] [address] 08/02/2021 00:00:00 08/20/2021 23:11:41 [id number] [facility] 15 2043 Karina Hunt [address] [address] 08/22/2021 00:00:00 08/25/2021 22:17:29 [id number] [facility] [address] [place], [place] [address]., [place] [address] 11/22/2021 00:00:00 12/10/2021 21:21:57 [id number] [facility] [address] [place] [address] 06/19/2022 00:00:00 06/20/2022 21:59:25 [id number] [facility] [address] [place] [address] 1 07/31/2022 00:00:00 07/31/2022 22:30:49 [id number] [facility] [address] [place], [place] [address]., [place] [address] 1 10/23/2022 00:00:00 11/06/2022 22:07:39 [id number] Alejandro Stock MD [facility] [address] [place] [address]., [place] [address] 1 01/23/2023 16:43:35 01/26/2023 10:17:34 Osteoarthritis 306264428 M19.90 Hyperlipidemia 53990799 E78.5 Screening for malignant neoplasm of prostate 054130828 Z12.5 History of polyp of colon 143179242 Z86.146 [id number] Alejandro Stock MD [facility] [address] [place] [address]., [place] [address] 1 07/09/2023 16:07:32 07/09/2023 17:06:14 Osteoarthritis 463063210 M19.90 Hyperlipidemia 80123640 E78.5 Diverticular disease 397 781501 K57.90 Health Concerns Section Related Observation LastModified by Organization Detai ls LastModified Time None Recorded Concern Status LastModified by Organization Details LastModified Time None Recorded Advance Directives Directive N: Payers Encounter Date Sequence Insurance Name Policy Number Policy Delgado Covered Member ID Delgado Member ID Guarantor Name 01/23/2023 1 [employer] (EPO) [id number] Raj Gonzalez [id number] Raj Gonzalez 07/09/2023 1 [employer] (EPO) [id number] Raj Garcia Carlos [id number] Raj Gonzalez Notes Date Note Type Note Provider Name and Address Organization Details Recorded Time 01/23/2023 text/html arthritic compla ints he has seen buttonholer in doing a little bit betterDyslipidemia seems to be doing okay with trying to follow a low-fat dietBack pain little bit better no radicular symptoms Alejandro Stock MD [address], [place], [address], [employer] 03/04/2023 10:14:22 07/09/2023 text/html Arthritis seems to be stable dyslipidemia blood work reviewed Alejandro Stock MD [address], [place], [address], [employer] 07/09/2023 17:55:16
--- OUTSIDE RECORDS SUMMARY | 2024-10-22 16:01 | XMS_ITS | CONTINUITY OF CARE DOCUMENT ---
Author Name dionicio greenberg Address Unknown Organization [facility] Address [address] [place] [address] Phone [phone] Care Team Providers Care Lock Operator Name Role Phone Damien Franklin MD Unavailable JAVIER LINO MD Unavailable [phone] INSURANCE PROVIDERS Payer name Policy type / Coverage type [employer]elin [employer] alliance party ID [employer]EF[employer] Commercial insurance company [id number]
[2024-10-22 16:02] LABS: Basophils Absolute Auto 0.1 K/mm3 (0.0-0.1); Basophils Percent Auto 1.8 % (0.2-1.2); Eosinophils Absolute Auto 0.2 K/mm3 (0-0.3); Eosinophils Percent Auto 2.9 % (0-4.4); Hematocrit 42.5 % (42.0-52.0); Immature Granulocyte Absolute 0.01 K/mm3 (0.00-0.031); Immature Granulocyte Percent A 0.2 % (0-0.5); Lymphocytes Absolute Auto 1.38 K/mm3 (0.9-3.2); Lymphocytes Percent Auto 22.5 % (18.3-44.2); Mean Corpuscular HGB Conc 32.9 g/dl (32-36); Mean Corpuscular Hemoglobin 31.2 pg (26-34); Mean Corpuscular Volume 94.7 fl (80-100); Mean Platelet Volume 8.3 fl (7.4-10.4); Monocytes Absolute Auto 0.6 K/mm3 (0.1-0.6); Monocytes Percent Auto 9.1 % (2.6-8.5); Neutrophils Absolute Auto 3.9 K/mm3 (1.3-6.7); Neutrophils Percent Auto 63.5 % (45.5-73.1); Platelet Count Result 218 k/mm3 (150-375); Red Blood Count 4.49 M/mm3 (4.6-6.20); Red Cell Distribution Width 13.7 % (11.5-14.5); White Blood Count 6.1 K/mm3 (4.5-10.0)
[2024-10-22 16:06] LABS: Add Urine Microscopic? NO; Appearance Urine Clear (Clear); Bilirubin Urine Negative (Negative); Blood Urine Negative (Negative); Color Urine Yellow (Yellow); Glucose Urine UA Negative (Negative); Ketones Urine Trace mg/dL (Negative); Leukocyte Esterase Ur Negative LEU/UL (Negative); Nitrate Urine Negative (Negative); Protein Urine Negative (Negative); Specific Grav Ur 1.009 (1.001-1.035); Urobilinogen Urine 0.2 mg/dL (<2.0)
[2024-10-22 16:38] LABS: Erythrocyte Sedimentation Rate 1 mm/hr (0-20)
[2024-10-22 18:00] LABS: Albumin Level 4.6 g/dL (3.5-5.1); Anion Gap 9 mmol/L (4-12); Blood Urea Nitrogen 10 mg/dL (9-20); CRP < 0.5 mg/dL (<1.0); Calcium 9.7 mg/dL (8.4-10.2); Carbon Dioxide 28 mmol/L (22-30); Chloride 100 mmol/L (98-107); Estimated Glomerular Filt Rate > 60; Glucose 95 mg/dL (65-110); Phosphorus 3.3 mg/dL (2.5-4.5); Sodium 137 mmol/L (137-145); Uric Acid 5.3 mg/dL (3.5-8.5)
[2024-10-24 19:29] LABS: NIL 0.01 IU/mL; Quantiferon TB Plus, 1T NEGATIVE (NEGATIVE); TB1-NIL 0.01 IU/mL
== END 2024-10-22 15:09 | disposition home or self-care (01) ==
PROVIDERS: PCP Internal Medicine; Visit Provider Internal Medicine
DX: L40.50 Arthropathic psoriasis, unspecified (principal); M43.17 Spondylolisthesis, lumbosacral region; M51.369 Other intervertebral disc degeneration, lumbar region without mention of lumbar back pain or lower extremity pain; M47.816 Spondylosis without myelopathy or radiculopathy, lumbar region; M16.0 Bilateral primary osteoarthritis of hip; M79.642 Pain in left hand; M79.641 Pain in right hand; M19.072 Primary osteoarthritis, left ankle and foot; M19.071 Primary osteoarthritis, right ankle and foot
CPT/HCPCS: 36415; 72110; 72202; 73120; 73620; 80069; 81003; 84550; 85025; 85652; 86140; 86480